=== PATIENT | male | born 1960 | race American Indian/Alaskan Native ===

== ENCOUNTER 2017-10-11 09:49 | Emergency (ER) | payer BC ==
[2017-10-11 10:19] VITALS: BMI 32.5
[2017-10-11] MEDS ORDERED: Oxycodone/Acetaminophen 5/325 mg Tab PO STA (10:20)
--- NOTE | 2017-10-11 10:23 | ED PDOC ---
Arrival/HPI - General Chief Complaint: Finger,Hand,&Wrist Time Seen by Provider: 10/11/17 10:17 Historian: Patient - History of Present Illness Narrative History of Present Illness (Text): 10/11/17 10:19 pt p/w + sudden onset of right 3rd finger pain that began last night; initially throbbing but this morning, the pain became severe, rated at > 10/10 pain; pt also noted right 3rd finger swelling this morning; touching the finger induces more pain; pt states no fever/chills/sweats, no chest pain/shortness of breath/ palpitations, no abd pain, no n/v, no numbness/tingling, no urinary/bowel changes, no fall/trauma/sick contact, no travel. pt denied recent diet changes pt dose not bite his nails pt denied bleeding/rashes/bites pt denied other complaints pt is here for further eval. PCP: Dr Nickerson smokes 1 ppd hx of gout? right great toe pt is left hand dominate Time/Duration: Prior to Arrival Symptom Onset: Sudden Symptom Course: Worsening Quality: Stabbing, Throbbing Severity Level: 10, Severe Activities at Onset: Rest Context: Home Past Medical History - Provider Review Nursing Documentation Reviewed: Yes - Travel History Have you recently traveled outside [place] w/in the past 3 mons?: No - Past History Past History: Non-Contributing - Infectious Disease Hx of Infectious Diseases: None - Tetanus Immunization Tetanus Immunization: Unknown - Cardiac Hx Hypertension: Yes - Pulmonary Hx Sleep Apnea: Yes (bibap at home) - Neurological Hx Transient Ischemic Attacks (TIA): Yes (20 yrs ago no deficits) - Musculoskeletal/Rheumatological Hx Falls: No - Psychiatric Hx Anxiety: Yes Hx Depression: No Hx Emotional Abuse: No Hx Physical Abuse: No Hx Substance Use: No - Past Surgical History Past Surgical History: Non-Contributing - Surgical History Other/Comment: torn bicep left arm torn tendon left elbow sx football injury 10 yrs ago - Anesthesia Hx Anesthesia: No - Suicidal Assessment Feels Threatened In Home Enviroment: No Family/Social History - Physician Review Nursing Documentation Reviewed: Yes Family/Social History: No Known Family HX Smoking Status: Former Smoker Hx Alcohol Use: No Hx Substance Use: No Hx Substance Use Treatment: No Allergies/Home Meds Allergies/Adverse Reactions: Allergies No Known Allergies Allergy (Verified 10/11/17 10:14) Home Medications: Home Meds Medication Instructions Recorded Confirmed Amlodipine-Benazepril 5-20mg 1 tab PO DAILY 07/21/15 07/04/16 Escitalopram [Lexapro] 20 mg PO DAILY 07/21/15 07/04/16 Hydrochlorothiazide 12.5 mg PO DAILY 07/21/15 07/04/16 Review of Systems - Review of Systems Constitutional: Normal Eyes: Normal ENT: Normal Respiratory: Normal Cardiovascular: Normal Gastrointestinal: Normal Genitourinary Male: Normal Musculoskeletal: Other (right 3rd finger pain/swelling) Skin: Normal Neurological: Normal Endocrine: Normal Hemo/Lymphatic: Normal Psychiatric: Normal Physical Exam - Physical Exam Narrative Physical Exam (Text): 10/11/17 10:28 General: alert/awake, GCS = 15, oriented x 3, sitting on exam bed, uncomfortable , cooperative, interactive; mild distress due to pain during exam Head: NC/AT EYE: PERRLA, EOMI, sclera anicteric, no nystagmus, no photophobia; visual field intact b/l Facial: WNL Oral: uvula/tongue are midline, no exudate/lesions, no drooling/stridor, no dysphonia; intact dentitions NECK: intact ROM, no midline tenderness, no nuchal rigidity, no meningeal signs ; no step off Chest: CTA b/l, no w/r/r; no tachypenia, no accessory muscle use noted Cardiac: +S1, +S2, no m/r/r, no tachycardia Abdominal: +BS, soft/nd/nt, well nourished patient; no masses/rebound/guarding/ rigidity; no holland's sign, no mcburney's point tenderness Extremities: intact ROM to rest of the limbs except to right 3rd finger (decr flexion/extension due to pain/swelling), strength 5/5 grossly intact in all limbs, neurovasc intact b/l; + right 3rd finger at DIP region tenderness/ swelling and noted overlaying skin discoloration (slight erythematous), no open sores/lesions/lacerations noted; distal right 3rd finger/tip/finger-pad no bogginess/swelling/tenderness noted on exam/palpation, no expressible discharges /drainage/bleeding noted; + ambulatory; reflex +2/2; no pitting edema/swelling b /l; no Iván's sign b/l BACK: no step off, no midline tenderness, NO crepitus, no gross deformities noted; Intact ROM SKIN: cap refill < 1 sec, no ulcerations, no petechiae, no rashes; as described above ext findings; no gross pallor noted NEURO: CNII-XII WNL, no facial asymmetries, no slurr speech, oriented x 3 NIH stroke scale ~ 0 Psych: normal insight, normal affect; follows command with ease Vital Signs Reviewed: Yes Vital Signs Temp Pulse Resp BP Pulse Ox 10/11/17 12:34 16 10/11/17 10:25 98.4 F 58 L 16 137/90 97 Temperature: Afebrile Blood Pressure: Normal Pulse: Regular Respiratory Rate: Normal Appearance: Positive for: Well-Appearing, Non-Toxic, Uncomfortable. No: Ill- Appearing, Unkept Pain Distress: Mild Mental Status: Positive for: Alert and Oriented X 3 - Systems Exam Head: Present: Atraumatic, Normocephalic Medical Decision Making ED Course and Treatment: 10/11/17 10:15 Impression: right 3rd finger swelling, no trauma i have consider all the differential diagnosis regarding pt's chief medical complaints/clinical findings, including but are not limited to: right 3rd finger swelling, no trauma, likely inflammatory caused (i.e gout/pseudogout), unlikely infectious A/P: right 3rd finger swelling, no trauma - xray - uric acid - supportive care - observe/reevaluation 10/11/17 1230 pt is doing well pt states his pain is improved, currently at 4/10 pt is awaiting xray results 1300 pt received 3rd finger splint in the ED pt is made aware of his medical results pt will follow up as directed pt is encouraged diet control, avoid high protein foods (cheese/meat/seafood); pt is encouraged no alcohol and to maintain hydration pt will be discharged home Re-evaluation Time: 12:55 Reassessment Condition: Improved - Lab Interpretations Lab Results: Lab Results 10/11/17 10:40: Uric Acid 4.9 I have reviewed the lab results: Yes Interpretation: All labs normal - RAD Interpretation Narrative RAD Interpretations (Text): 10/11/17 12:09 right hand xray - NAD, no acute fx/dislocation noted PROCEDURE: Right Hand Radiographs. HISTORY: right hand/3rd finger at DIP swelling/tender COMPARISON: None. FINDINGS: BONES: No acute fracture. There is a lucent lesion with a thin sclerotic rim in the radial aspect of the distal epiphysis of the 3rd proximal phalanx. This may be multiloculated. It does not appear expansile. There is no periosteal reaction. This appears to abut the articular surface. This has a nonaggressive appearance. Differential diagnosis may include Herve abscess from infection or intraosseous ganglion on. This patient is in the wrong age group for chondroblastoma. Orthopedic consultation advised. No other lytic or blastic osseous lesion is identified. JOINTS: Normal. No osteoarthritic changes. SOFT TISSUES: Normal. OTHER FINDINGS: None. IMPRESSION: Lucent lesion of the distal aspect 3rd proximal phalanx. Differential diagnosis as above. 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 Yes Pain Scale Used Pain Scale Used Numeric Description Intensity of Pain at present 8 IM Administration Charges Document 10/11/17 10:32 ANABEL (Rec: 10/11/17 10:32 ANABEL [id number]) Injection Site MAR Injection Site Left Deltoid Charges for Administration # of IM Administrations 1 Oxycodone/Acetaminophen (Percocet 5/325 Mg Tab) 1 tab PO STAT STA Stop: 10/11/17 10:21 Last Admin: 10/11/17 10:31 Dose: 1 tab MAR Pain Assessment Document 10/11/17 10:31 ANABEL (Rec: 10/11/17 10:32 ANABEL [id number]) Pain Reassessment Is this a pain reassessment? Yes Presence of Pain Presence of Pain Yes Pain Scale Used Pain Scale Used Numeric Location Left, Right or Bilateral Right Pain Location Body Site Middle Finger Description Description Pressure Intensity of Pain at present 8 Disposition/Present on Arrival - Present on Arrival Any Indicators Present on Arrival: No History of DVT/PE: No History of Uncontrolled Diabetes: No Urinary Catheter: No History of Decub. Ulcer: No History Surgical Site Infection Following: None - Disposition Have Diagnosis and Disposition been Completed?: Yes Diagnosis: Finger pain, right, Gout attack Disposition: HOME/ ROUTINE Disposition Time: 12:00 Patient Plan: Discharge Condition: STABLE Discharge Instructions (ExitCare): Gout, Lifestyle Changes to Manage Gout Print Language: [place] Additional Instructions: Make sure to see your doctor in 1-2 days DRINK PLENTY OF FLUIDS AVOID fatty foods, AVOID alcohol, AVOID seafood/meat avoid heavy lifting take your medications as prescribed RETURN TO ED IF worse pain, cant breath, persistent vomiting, high fever >101- 102 for hours, altered behavior, slurr speech, facial changes, focal weakness ( arm/leg or both), unable to urinate, heavy/persistent bleeding, passing out, chest pain, or other medical emergencies Prescriptions: Ibuprofen [Motrin] 600 mg PO QID PRN #30 tab PRN Reason: Pain, Mild (1-3) oxyCODONE/Acetaminophen [Percocet 5/325 mg Tab] 1 tab PO TID PRN #12 tab PRN Reason: Pain, Moderate (4-7) Prednisone [Deltasone] 2 tab PO DAILY #10 tablet Referrals: Viola Doran MD [Family Provider] - Follow up with primary [facility] [Outside] - Follow up with primary [facility] [Outside] - Follow up with primary [facility] [place] [Outside] - Follow up with primary Forms: [facility] (Lithuanian), WORK NOTE
[2017-10-11 10:29] VITALS: BP 137/90; PULSE 58; RESP 16; TEMP 98.4; O2SAT 97
--- NOTE | 2017-10-11 14:32 | RAD ---
PROCEDURE: Right Hand Radiographs. HISTORY: right hand/3rd finger at DIP swelling/tender COMPARISON: None. FINDINGS: BONES: No acute fracture. There is a lucent lesion with a thin sclerotic rim in the radial aspect of the distal epiphysis of the 3rd proximal phalanx. This may be multiloculated. It does not appear expansile. There is no periosteal reaction. This appears to abut the articular surface. This has a nonaggressive appearance. Differential diagnosis may include Herve abscess from infection or intraosseous ganglion on. This patient is in the wrong age group for chondroblastoma. Orthopedic consultation advised. No other lytic or blastic osseous lesion is identified. JOINTS: Normal. No osteoarthritic changes. SOFT TISSUES: Normal. OTHER FINDINGS: None. IMPRESSION: Lucent lesion of the distal aspect 3rd proximal phalanx. Differential diagnosis as above. Recommend orthopedic consult
== END 2017-10-11 12:34 | disposition home or self-care (01) ==
LOC: ED 09:49
DX: M79.644 Pain in right finger(s) (principal); M10.9 Gout, unspecified; I10 Essential (primary) hypertension; Z87.891 Personal history of nicotine dependence
CPT/HCPCS: 29130; 73130; 84550; 96372; 99283; J1885

== ENCOUNTER 2018-04-24 08:22 | Outpatient (CLI) | payer BC | END 2018-04-24 08:23 | disposition home or self-care (01) | LOC: CARDIO 08:22 | DX: R06.02 Shortness of breath (principal); I10 Essential (primary) hypertension; R07.89 Other chest pain; J44.9 Chronic obstructive pulmonary disease, unspecified; E66.9 Obesity, unspecified; E78.00 Pure hypercholesterolemia, unspecified ==